=== PATIENT | male | born 1985 | race Caucasian/White ===

== ENCOUNTER 2017-02-05 08:07 | Emergency (ER) | payer SELFPAY ==
[2017-02-05] MEDS ORDERED: NO HOME MEDICATION XX (08:20)
[2017-02-05] MEDS ORDERED: MEDROL4 M2 PO (08:54)
[2017-02-05] MEDS ORDERED: NEURONTIN300 M1 PO (08:54)
== END 2017-02-05 09:20 ==
LOC: EDMED 08:07
DX: M79.652 Pain in left thigh (principal); R20.0 Anesthesia of skin